=== PATIENT | male | born 1985 | race Two or more races ===

== ENCOUNTER 2016-11-27 14:14 | Outpatient (CLI) | payer OTHER | END 2016-11-27 14:15 | disposition home or self-care (01) | DX: G47.33 Obstructive sleep apnea (adult) (pediatric) (principal) ==

== ENCOUNTER 2023-03-23 08:42 | Outpatient (CLI) | payer OTHER ==
--- NOTE | 2023-03-23 09:46 | MRI Report ---
PROCEDURE: KNEE WO - LT INDICATIONS: PAIN IN LEFT KNEE TECHNIQUE: Noncontrast sagittal PD fast spin echo and T2 fast spin echo with fat saturation, sagittal 3-D gradie nt sequence with fat saturation; coronal T1 spin echo and PD fast spin echo with fat saturation, and axial PD fast spin echo with fat saturation through the knee. COMPARISON: None. FINDINGS: Image quality: Excellent. Menisci: There is mild ill-defined T2 signal elevation at the posterior meniscocapsular junction of t he posterior horn medial meniscus. The medial and lateral menisci demonstrate otherwise normal morpho logy and internal signal. The meniscal root ligaments appear intact. Cruciate ligaments: The anterior and posterior cruciate ligaments appear intact. Medial structures: The medial collateral ligament appears intact. Visualized portions of the pes ans erinus tendons appear normal. No abnormal bursal fluid. Lateral structures: The lateral collateral ligament, long and short heads of the biceps femoris tend on appear intact. The popliteus tendon appears. Iliotibial band appears normal. Anterior structures: The quadriceps and patellar tendons appear intact. Patellar alignment is ivana l. No femoral trochlear dysplasia or ventral trochlear prominence. No edema in the infrapatellar fa t pad. Bones and cartilage: No bone marrow contusions or fractures. There is a 3 mm region of moderate degr ee cartilage loss overlying the medial patellar facet adjacent to the apex. Joint space: There is physiologic knee joint fluid. There is a small ganglion cyst at the posterior aspect of the medial femoral condyle measuring roughly 33 mm craniocaudal by 5 mm anteroposterior by 10 mm transverse, possibly arising from the meniscocapsular junction injury. No De Jesus's cyst. Ivana l appearing synovial plicae are incidentally noted. IMPRESSION: 1. Meniscocapsular junction injury involving the posterior horn medial meniscus associated with an ad jacent ganglion cyst. 2. Focal articular cartilage defect involving the medial patellar facet. Reviewed by: Navarro Barksdale MD on 03/23/2023 9:45 AM PDT Approved by: Navarro Barksdale MD on 03/23/2023 9:45 AM PDT Station ID: [id number]
== END 2023-03-23 08:43 | disposition home or self-care (01) ==
LOC: DI 08:42
PROVIDERS: ATTEND Preventive Medicine Aerospace Medicine
DX: S89.82XA Other specified injuries of left lower leg, initial encounter (principal); M67.462 Ganglion, left knee